=== PATIENT | male | born 1995 | race Asian ===

== ENCOUNTER 2023-07-21 06:12 | Emergency (ER) | payer OTHER ==
[~2023-07-21] VITALS: Ht 165.1 cm; Wt 62.1 kg
[2023-07-21 06:24] VITALS: BP_SYST 135; PULSE 66; O2SAT 100
[2023-07-21] MEDS: NACL 0.9% 1,000 ML IV ONE (07:07)
[2023-07-21] MEDS: METOCLOPRAMIDE HCL 10 MG/2 ML VIAL IVP ONE (07:08)
[2023-07-21] MEDS: KETOROLAC TROMETHAMINE 30 MG VIAL IVP ONE (07:10)
[2023-07-21 07:13] LABS: BILIRUBIN,URINE NEGATIVE (NEGATIVE); BLOOD, URINE NEGATIVE (NEGATIVE); CLARITY/URINE CLEAR (CLEAR); COLOR,URINE YELLOW (YELLOW); GLUCOSE,URINE NEGATIVE (NEGATIVE); KETONES,URINE NEGATIVE (NEGATIVE); LEUKOCYTE ESTERASE ,URINE NEGATIVE (NEGATIVE); NITRITE, URINE NEGATIVE (NEGATIVE); PH,URINE 6.5 (5.0-8.0); PROTEIN URINE NEGATIVE (NEGATIVE); UROBILINOGEN,URINE 0.2 (0.2-1.0)
[2023-07-21 07:18] LABS: EOSINOPHILS # (AUTO) 0.4 K/uL (0.0-0.4); HEMOGLOBIN 17.8 g/dL (14.0-18.0); MONOCYTES # (AUTO) 0.5 K/uL (0.0-1.0); NEUTROPHILS # (AUTO) 2.8 K/uL (1.8-7.7); PLATELET COUNT (AUTO) 252 K/uL (130-430); WHITE BLOOD COUNT (AUTO) 5.7 K/uL (4.8-10.8)
[2023-07-21 07:32] LABS: CALCIUM 9.4 mg/dL (8.4-11.0); CREATININE 0.94 mg/dL (0.55-1.30); POTASSIUM 4.4 mmol/L (3.5-5.1)
[2023-07-21 07:36] LABS: ALBUMIN 4.1 g/dL (3.4-4.8); BILIRUBIN,DIRECT 0.2 mg/dL (0.0-0.3); TOTAL BILIRUBIN 1.1 mg/dL (0.0-1.0); TOTAL PROTEIN, SERUM 7.8 g/dL (6.4-8.3)
[2023-07-21 07:42] LABS: BASOPHILS % (AUTO) 0.6 % (0.0-2.0); EOSINOPHILS % (AUTO) 6.9 % (0.0-4.0); HEMATOCRIT 50.1 % (36-54); LYMPHOCYTES % (AUTO) 34.1 % (20.5-51.5); MEAN CORPUSCULAR HEMOGLOBIN 30 pg (27-31); MEAN CORPUSCULAR HGB CONC 36 % (32-36); MEAN CORPUSCULAR VOLUME 84 fL (79.0-98.0); NEUTROPHILS % (AUTO) 49.4 % (40.0-70.0); RED BLOOD CELL COUNT(AUTO) 5.96 MIL/uL (4.2-6.2); RED CELL DISTRIBUTION WIDTH 12.8 % (9.0-15.0)
[2023-07-21] MEDS ORDERED: SUCR1TAB2 PO (08:21)
[2023-07-21] MEDS ORDERED: METO5TAB86 PO (08:21)
[2023-07-21] MEDS ORDERED: POLY17PO4 PO (08:21)
[2023-07-21] MEDS: MAG-AL HYDROX/SIMETH 30 ML UDC PO ONE (08:29)
[2023-07-21] MEDS: ONDANSETRON HCL 4 MG/2 ML VIAL IVP ONE (09:43)
[2023-07-21 10:13] VITALS: BP_SYST 119; PULSE 60; RESP 18; TEMP 97.4; O2SAT 100
== END 2023-07-21 10:12 | disposition home or self-care (01) ==
LOC: SED 06:12
DX: R10.13 Epigastric pain (principal); R11.0 Nausea; Z79.899 Other long term (current) drug therapy
CPT/HCPCS: 99285; 74176; 96374; 96375; 96361; 80076; 80048; 81001; 82150; 83690; 85025; 36415; 81003; J1885; J2765; J2405; J7030

== ENCOUNTER 2023-09-23 06:22 | Emergency (ER) | payer OTHER ==
[~2023-09-23] VITALS: Ht 165.1 cm; Wt 61.2 kg
[2023-09-23 06:22] VITALS: BP_SYST 133; PULSE 72; RESP 20; TEMP 97.5; O2SAT 99
[~2023-09-23 06:22] MED LIST: METO5TAB86 PO; POLY17PO4 PO; SUCR1TAB2 PO
[2023-09-23 06:34] VITALS: BP_SYST 132; PULSE 69; RESP 18; TEMP 98.1; O2SAT 98
== END 2023-09-23 08:03 | disposition left against medical advice (07) ==
LOC: SED 06:22
DX: J02.9 Acute pharyngitis, unspecified (principal); R93.89 Abnormal findings on diagnostic imaging of other specified body structures; Z79.899 Other long term (current) drug therapy
CPT/HCPCS: 71045; 99283